=== PATIENT | female | born 1965 | race Hispanic/Latino ===

== ENCOUNTER 2017-08-28 03:06 | Emergency (ER) | payer MEDICARE, MEDICAID ==
[2017-08-28 03:06] VITALS: BMI 29.7
--- NOTE | 2017-08-28 03:08 | ED PDOC ---
Arrival/HPI - General Time Seen by Provider: 08/28/17 03:07 Historian: Patient - History of Present Illness Narrative History of Present Illness (Text): 08/28/17 03:08 Rhea Funk is a 52 year old female who presents to the emergency department brought in by EMS complaining of a left wrist laceration prior to arrival. Patient states she was at home when she purposely cut her left wrist with a serrated knife. Patient admits to drinking alcohol tonight. Patient denies any back pain, neck pain, headache, dizziness, fever, chills, chest pain, abdominal pain, nausea, vomiting, or any other complaints. Symptom Onset: Gradual Symptom Course: Unchanged Activities at Onset: Light Context: Home Past Medical History - Provider Review Nursing Documentation Reviewed: Yes - Infectious Disease Hx of Infectious Diseases: None - Tetanus Immunization Tetanus Immunization: Unknown - Cardiac Hx Cardiac Disorders: No - Pulmonary Hx Respiratory Disorders: No - Neurological Hx Neurological Disorder: Yes ("nerve damage") - HEENT Hx HEENT Disorder: No - Renal Hx Renal Disorder: No - Endocrine/Metabolic Hx Endocrine Disorders: No - Hematological/Oncological Hx Blood Disorders: No - Integumentary Hx Dermatological Disorder: No - Musculoskeletal/Rheumatological Hx Musculoskeletal Disorders: Yes Hx Back Pain: Yes - Gastrointestinal Hx Gastrointestinal Disorders: No - Genitourinary/Gynecological Hx Genitourinary Disorders: No - Psychiatric Hx Psychophysiologic Disorder: Yes Hx Depression: Yes Hx Emotional Abuse: No Hx Physical Abuse: No Hx Substance Use: No - Surgical History Hx Section: Yes (x4) Hx Cholecystectomy: Yes Other/Comment: cervical cone biopsy - Suicidal Assessment Feels Threatened In Home Enviroment: No Family/Social History - Physician Review Nursing Documentation Reviewed: Yes Family/Social History: Unknown Family HX Smoking Status: Heavy Smoker > 10 Cigarettes Daily Hx Alcohol Use: Yes Hx Substance Use: No Hx Substance Use Treatment: No Allergies/Home Meds Allergies/Adverse Reactions: Allergies thorazine Allergy (Intermediate, Uncoded 08/28/17 03:17) ANGIOEDEMA EPS Home Medications: Home Meds Medication Instructions Recorded Confirmed Oxycodone HCl/Acetaminophen 1 each PO DAILY 08/28/17 08/28/17 [Percocet 10-325 mg Tablet] Review of Systems - Physician Review All systems were reviewed & negative as marked: Yes - Review of Systems Constitutional: Normal. absent: Fevers Eyes: Normal ENT: Normal Respiratory: Normal. absent: SOB, Cough Cardiovascular: Normal. absent: Chest Pain Gastrointestinal: Normal. absent: Abdominal Pain, Diarrhea, Nausea, Vomiting Genitourinary Female: Normal. absent: Dysuria, Frequency, Hematuria, Urine Output Changes Musculoskeletal: Normal. absent: Back Pain, Neck Pain Skin: Laceration (+left wrist laceration) Neurological: Normal. absent: Headache, Dizziness Endocrine: Normal Hemo/Lymphatic: Normal Psychiatric: Normal Physical Exam Vital Signs Reviewed: Yes Vital Signs Temp Pulse Resp BP Pulse Ox 08/28/17 04:22 96.4 F L 105 H 18 123/68 95 08/28/17 03:19 88/49 L Temperature: Afebrile Blood Pressure: Normal Pulse: Regular Respiratory Rate: Normal Appearance: Positive for: Well-Appearing, Non-Toxic, Comfortable Pain Distress: None Mental Status: Positive for: Alert and Oriented X 3 - Systems Exam Head: Present: Atraumatic, Normocephalic Pupils: Present: PERRL Extroacular Muscles: Present: EOMI Conjunctiva: Present: Normal Mouth: Present: Moist Mucous Membranes Neck: Present: Normal Range of Motion Respiratory/Chest: Present: Clear to Auscultation, Good Air Exchange. No: Respiratory Distress, Accessory Muscle Use Cardiovascular: Present: Regular Rate and Rhythm, Normal S1, S2. No: Murmurs Abdomen: Present: Normal Bowel Sounds. No: Tenderness, Distention, Peritoneal Signs Back: Present: Normal Inspection Upper Extremity: Present: Normal ROM, NORMAL PULSES, Other (2 lacerations with arterial bleed over the left wrist). No: Cyanosis, Edema, Swelling, Erythema, Temperature Abnormalties Lower Extremity: Present: Normal Inspection. No: Edema Neurological: Present: GCS=15, CN II-XII Intact, Speech Normal Skin: Present: Warm, Dry, Normal Color. No: Rashes Psychiatric: Present: Alert, Oriented x 3, Normal Insight, Normal Concentration Medical Decision Making ED Course and Treatment: 08/28/17 03:08 Impression: 52 year old female complaining of left-wrist laceration prior to arrival. Plan: -- Labs, alcohol level -- Reassess and disposition Prior Visits: Notes and results from previous visits were reviewed. Progress Notes: Pt noted to have 2 lacerations with arterial bleed. Pressure bandage and blood pressure cuff applied to control bleeding. Pt will require transfer to nearest trauma facility. [facility] surgeon collections clerk paged. 08/28/17 04:[address] Freddie Dillard, [facility] [place] trauma surgeon collections clerk, who is aware and accepts pt on transfer. [facility] [place] [place] ER paged. 08/28/17 04:[address] Suraj Triana, [facility] [place] ER attending, made aware of transfer. . Pt to be transferred via ALS. Based upon the information available at the time of transfer, the medical benefits reasonably expected from the provision of medical treatment at [facility] outweigh the increased risk to the patient for transfer from this facility. I have described the inherent risks and benefits of the transfer to the patient, and patient agrees to transfer. I have spoken to Dr. Freddie Dillard, [facility] [place] trauma surgeon collections clerk, who has agreed to accept transfer of the patient and provide further medical treatment at the receiving facility. At the time of transfer, copies of all medical records sent which related to the emergency condition for which the individual presented. These records include observations of signs or symptoms, preliminary clinical impression, treatment provided, results of any completed test and an informed written consent to the transfer. 08/28/17 20:44 - Lab Interpretations Lab Results: 08/28/17 03:52 08/28/17 03:52 Lab Results 08/28/17 03:52: Alcohol, Quantitative 259 H 08/28/17 03:52: Sodium 148, Potassium 4.2, Chloride 111 H, Carbon Dioxide 19 L, Anion Gap 22 H, BUN 17, Creatinine 0.7, Est GFR ( Amer) > 60, Est GFR ( Non-Af Amer) > 60, Random Glucose 157 H, Calcium 9.3, Total Bilirubin 0.2, AST 57 H, ALT 69 H, Alkaline Phosphatase 91, Total Protein 7.4, Albumin 4.4, Globulin 3.0, Albumin/Globulin Ratio 1.5 08/28/17 03:52: PT 12.1, INR 1.06, APTT 32.3 08/28/17 03:52: WBC 7.0, RBC 4.14, Hgb 13.3, Hct 38.0, MCV 91.8, MCH 32.1, MCHC 35.0, RDW 13.0, Plt Count 295, MPV 9.8, Gran % 43.8 L, Lymph % (Auto) 47.4 H, Person % (Auto) 5.0, Eos % (Auto) 3.2, Baso % (Auto) 0.6, Gran # 3.06, Lymph # ( Auto) 3.3, Person # (Auto) 0.4, Eos # (Auto) 0.2, Baso # (Auto) 0.04 I have reviewed the lab results: Yes - Medication Orders Current Medication Orders: Discontinued Medications Lactated Ringer's (Lactated Ringer's) 1,000 mls @ 2,000 mls/hr IV .Q30M JATINDER Last Admin: 08/28/17 05:13 Dose: 2,000 mls/hr eMAR Start Stop Document 08/28/17 05:13 SS (Rec: 08/28/17 05:14 SS [id number]) Intravenous Solution Start Date 08/28/17 Start Time 03:45 End Date 08/28/17 End time 04:30 Total Infusion Time 45 - Scribe Statement The provider has reviewed the documentation as recorded by the Scar Del Castillo Provider Scribe Attestation: All medical record entries made by the Scribe were at my direction and personally dictated by me. I have reviewed the chart and agree that the record accurately reflects my personal performance of the history, physical exam, medical decision making, and the department course for this patient. I have also personally directed, reviewed, and agree with the discharge instructions and disposition. Disposition/Present on Arrival - Present on Arrival Any Indicators Present on Arrival: No History of DVT/PE: Yes History of Uncontrolled Diabetes: No Urinary Catheter: No History Surgical Site Infection Following: None - Disposition Have Diagnosis and Disposition been Completed?: Yes Diagnosis: Laceration of radial artery at left forearm level Disposition: Transfer [facility] [place] Disposition Time: 04:30 Condition: GOOD Referrals: [facility] Req, [Non-Staff] - Follow up with primary Forms: [employer] ([place])
[2017-08-28] MEDS ORDERED: Lactated Ringer's 1,000 ML IV SCH (03:45)
[2017-08-28 04:13] LABS: ALB/GLOB RATIO 1.5 (1.1-1.8); ALBUMIN 4.4 g/dL (3.0-4.8); ALT/SGPT 69 U/L (7-56); AST/SGOT 57 U/L (14-36); BLOOD UREA NITROGEN 17 mg/dL (7-21); CALCIUM 9.3 mg/dL (8.4-10.5); GFR AFRICAN-AMERICAN > 60; GFR NON-AFRICAN AMERICAN > 60
[2017-08-28 04:22] VITALS: BP 123/68; PULSE 105; RESP 18; O2SAT 95
[2017-08-28 04:23] VITALS: TEMP 96.4
[2017-08-28 04:24] LABS: BASO # 0.04 K/mm3 (0.0-2.0); BASO % 0.6 % (0.0-3.0); EOS # 0.2 (0.0-0.7); EOS % 3.2 % (1.5-5.0); GRAN # 3.06 (1.4-6.5); GRAN % 43.8 % (50.0-68.0); HEMOGLOBIN 13.3 g/dL (12.0-16.0); LYMPH # 3.3 (1.2-3.4); LYMPH % 47.4 % (22.0-35.0); MEAN CELL VOLUME 91.8 fl (80.0-105.0); MEAN CORPUSCULAR HEMOGLOBIN 32.1 pg (25.0-35.0); MEAN PLATELET VOLUME 9.8 fl (7.0-11.0); MONO # 0.4 (0.1-0.6); RBC 4.14 10^6/uL (3.5-6.1)
[2017-08-28 04:32] LABS: INR 1.06 (0.93-1.08); PARTIAL THROMBOPLASTIN TIME 32.3 Seconds (25.1-36.5); PROTHROMBIN TIME 12.1 SECONDS (9.4-12.5)
== END 2017-08-28 04:30 | disposition short-term general hospital (02) ==
LOC: ED 03:06
DX: S55.112A Laceration of radial artery at forearm level, left arm, initial encounter (principal); W26.0XXA Contact with knife, initial encounter; Y92.009 Unspecified place in unspecified non-institutional (private) residence as the place of occurrence of the external cause; F17.210 Nicotine dependence, cigarettes, uncomplicated
CPT/HCPCS: 80053; 85025; 85610; 85730; 96360; 99284; G0480; J7120

== ENCOUNTER 2018-07-24 11:33 | Outpatient (CLI) | payer MEDICARE, MEDICAID | END 2018-07-24 11:34 | disposition home or self-care (01) | LOC: RAD 11:33 ==